=== PATIENT | male | born 1970 | race Caucasian/White ===

== ENCOUNTER 2016-08-11 14:33 | Emergency (ER) | payer OTHER ==
[2016-08-11] MEDS ORDERED: chlordiazePOXIDE CAP* 25 MG PO ONE ×2 (17:22→21:13)
[2016-08-11 17:46] LABS: Hematocrit 46 % (42-52); Hemoglobin 15.7 g/dl (14.0-18.0); Mean Corpuscular HGB Conc 34 g/dl (31-36); Mean Corpuscular Hemoglobin 33 pg (27-31); Mean Corpuscular Volume 96 fL (80-94); Mean Platelet Volume 8 um3 (7.4-10.4); Red Blood Count 4.79 10^6/ul (4.0-5.4); Red Cell Distribution Width 13 % (10.5-15); White Blood Count 5.3 10^3/ul (3.5-10.8)
[2016-08-11 18:05] LABS: ALT 80 U/L (7-52); AST 98 U/L (13-39); Albumin 4.1 g/dL (3.2-5.2); Alkaline Phosphatase 50 U/L (34-104); Anion Gap 10 mmol/L (2-11); BUN/Creatinine Ratio 12.2 (8-20); Blood Urea Nitrogen 10 mg/dL (6-24); CO2 Carbon Dioxide 23 mmol/L (22-32); Calcium 8.9 mg/dL (8.6-10.3); Chloride 103 mmol/L (101-111); EGFR African American 130.1 (>60); EGFR Non-African American 101.1 (>60); Globulin 2.7 g/dL (2-4); Glucose 100 mg/dL (70-100); Potassium 3.3 mmol/L (3.5-5.0); Sodium 136 mmol/L (133-145); Total Protein 6.8 g/dL (6.4-8.9)
[2016-08-11 18:19] LABS: Acetaminophen < 15 mcg/mL; Alcohol < 10 mg/dL (<10); Salicylate < 2.50 mg/dL (<30)
[2016-08-11 18:32] LABS: TSH (Thyroid Stimulating Horm) 1.61 mcIU/mL (0.34-5.60)
[2016-08-11 19:00] LABS: Urine Bilirubin Negative (Negative); Urine Glucose Negative (Negative); Urine Nitrite Negative (Negative)
[2016-08-11 19:13] LABS: Benzodiazepine Urine Screen None Detected (None Detect)
--- NOTE | 2016-08-11 23:11 | ED ---
Gera Mckay Alok, scribed for Landon Echevarria MD on 08/11/16 at 1809 . Substance Abuse/Use - HPI Summary HPI Summary: 46M presents to the ED with ETOH withdrawal symptoms. Pt notes diaphoresis and weakness since riding his bike this morning. Pt also notes tachycardia last night as well as difficulty sleeping for the past 3 days. Pt states he has not had ETOH for the last 2 days. Pt describes his ETOH as daily and states that he drank heavier than average last week, some days more than 20 drinks. Pt states that last week he drank liquor though he normally drinks cider. Pt has adverse reaction to glutton. - History Of Current Complaint Chief Complaint: EDGeneral Stated Complaint: WITHDRAWL SYMPTOMS Time Seen by Provider: 08/11/16 16:57 Hx Obtained From: Patient Onset/Duration of Drug/ETOH Abuse: Years Timing Of Abuse: Daily Severity Initially: Moderate Severity Currently: Moderate Alleviating Factor(s): Nothing Associated Signs And Symptoms: Sleep Disturbance, Diaphoretic Related Hx: Drug/Alcohol Last Used @ - 2 days ago - Allergies/Home Medications Allergies/Adverse Reactions: Allergies Allergy/AdvReac Type Severity Reaction Status Date / Time No Known Allergies Allergy Verified 08/11/16 17:23 PMH/Surg Hx/FS Hx/Imm Hx Infectious Disease History: No Infectious Disease History: Denies: Traveled Outside the [place] in Last 30 Days - Family History Known Family History: Negative: Hypertension - Social History Occupation: Employed Full-time Alcohol Use: Daily Alcohol Amount: 12pk per day Substance Use Type: Reports: Marijuana Smoking Status (MU): Never Smoked Tobacco Review of Systems Positive: Skin Diaphoresis. Negative: Fever, Chills Negative: Erythema Negative: Sore Throat Negative: Chest Pain Negative: Shortness Of Breath, Cough Negative: Abdominal Pain Negative: dysuria, hematuria Negative: Myalgia, Edema Negative: Rash Neurological: Other - Negative: Dizziness Positive: Weakness All Other Systems Reviewed And Are Negative: Yes Physical Exam - Summary Physical Exam Summary: Constitutional: Well-developed, Well-nourished, Alert. (-) Distressed Skin: Warm, Dry HENT: Normocephalic; Atraumatic Eyes: Conjunctiva normal Neck: Musculoskeletal ROM normal neck. (-) JVD, (-) Stridor, (-) Tracheal deviation Cardio: Rhythm regular, rate normal, Heart sounds normal; Intact distal pulses; The pedal pulses are 2+ and symmetric. Radial pulses are 2+ and symmetric. (-) Murmur Pulmonary/Chest wall: Effort normal. (-) Respiratory distress, (-) Wheezes, (-) Rales Abd: Soft, (-) Tenderness, (-) Distension, (-) Guarding, (-) Rebound Musculoskeletal: (-) Edema Lymph: (-) Cervical adenopathy Neuro: Alert, Oriented x3 Psych: Mood and affect Normal Triage Information Reviewed: Yes Vital Signs On Initial Exam: Initial Vitals Temp Pulse Resp BP Pulse Ox 98.4 F 84 20 175/112 99 08/11/16 15:01 08/11/16 15:01 08/11/16 15:01 08/11/16 15:01 08/11/16 15:01 Vital Signs Reviewed: Yes - [place] Coma Scale Coma Scale Total: 15 Diagnostics - Vital Signs Vital Signs Temp Pulse Resp BP Pulse Ox 08/11/16 17:40 20 08/11/16 15:04 98.3 F 84 20 175/112 99 08/11/16 15:01 98.4 F 84 20 175/112 99 - Laboratory Lab Results: Lab Results 08/11/16 Range/Units 17:35 WBC 5.3 (3.5-10.8) 10^3/ul RBC 4.79 (4.0-5.4) 10^6/ul Hgb 15.7 (14.0-18.0) g/dl Hct 46 (42-52) % MCV 96 H (80-94) fL MCH 33 H (27-31) pg MCHC 34 (31-36) g/dl RDW 13 (10.5-15) % Plt Count 134 L (150-450) 10^3/ul MPV 8 (7.4-10.4) um3 Neut % (Auto) 63.6 (38-83) % Lymph % (Auto) 18.1 L (25-47) % [place] % (Auto) 17.1 H (1-9) % Eos % (Auto) 0.7 (0-6) % Baso % (Auto) 0.5 (0-2) % Absolute Neuts (auto) 3.4 (1.5-7.7) 10^3/ul Absolute Lymphs (auto) 1.0 (1.0-4.8) 10^3/ul Absolute Monos (auto) 0.9 H (0-0.8) 10^3/ul Absolute Eos (auto) 0 (0-0.6) 10^3/ul Absolute Basos (auto) 0 (0-0.2) 10^3/ul Absolute Nucleated RBC 0 10^3/ul Nucleated RBC % 0.1 Result Diagrams: 08/11/16 17:35 08/11/16 17:35 Lab Statement: Any lab studies that have been ordered have been reviewed, and results considered in the medical decision making process. Re-Evaluation - Re-Evaluation First Eval Re-Evaluation Time: 21:18 Change: Improved Comment: Patient is feeling better, no diaphoresis and tremors gone. BP stabilized. Course/Dx - Diagnoses Provider Diagnoses: Alcohol withdrawal Discharge - Discharge Plan Condition: Stable Disposition: HOME Prescriptions: [email or web address] CAP* [Librium CAP*] 1 - 2 tab PO Q6H PRN #40 cap MDD 8 PRN Reason: Withdrawal - Alcohol Patient Education Materials: Alcohol Withdrawal (ED) Referrals: [facility] [Outside] Additional Instructions: Please return to the emergency department or urgent care for new/worsening symptoms. The documentation as recorded by the Gera pettit Alok accurately reflects the service I personally performed and the decisions made by , Landon Echevarria MD.
[2016-08-12 05:53] VITALS: BP 149/103
== END 2016-08-11 21:30 | disposition home or self-care (01) ==
LOC: ED 14:33
DX: F10.239 Alcohol dependence with withdrawal, unspecified (principal); R53.1 Weakness
CPT/HCPCS: 36415; 80053; 80307; 80320; 80329; 81003; 84443; 85025; 99283; A9270-GY; G0480

== ENCOUNTER 2016-12-09 18:22 | Inpatient (IN) | payer OTHER ==
[2016-12-09] MEDS ORDERED: LORazepam INJ* 2 MG/ML 1 ML VIAL IV PUSH ONE (21:59)
[2016-12-09] MEDS ORDERED: Thiamine IV* 100 MG/ML 2 ML VIAL IV ONE (22:00)
[2016-12-09] MEDS ORDERED: Thiamine IV* 100 MG, Folic Acid IV* 1 MG, Multiple Vitamin IV ADULT* 10 ML, Magnesium S... IV ONE ×5 (22:00)
[2016-12-09] MEDS ORDERED: NS 0.9% 1000 ML* 2,000 ML IV ONE (22:00)
[2016-12-09] MEDS ORDERED: Ondansetron INJ* 2 MG/ML VIAL IV ONE (22:00)
[2016-12-09] MEDS ORDERED: chlordiazePOXIDE CAP* 10 MG PO ONE (22:02)
[2016-12-09 22:28] LABS: Urine Bilirubin Negative (Negative); Urine Glucose Negative (Negative); Urine Nitrite Negative (Negative)
[2016-12-09] MEDS ORDERED: Thiamine IV 100 MG, Folic Acid IV* 1 MG, Multiple Vitamin IV ADULT* 10 ML in D5NS 0.9% ... IV ONE (22:28)
[2016-12-09 22:32] LABS: Comments Flag Yes; Hematocrit 45 % (42-52); Mean Corpuscular HGB Conc 36 g/dl (31-36); Mean Corpuscular Hemoglobin 33 pg (27-31); Mean Corpuscular Volume 93 fL (80-94); Mean Platelet Volume 8 um3 (7.4-10.4); Red Blood Count 4.83 10^6/ul (4.0-5.4); Red Cell Distribution Width 14 % (10.5-15); White Blood Count 5.7 10^3/ul (3.5-10.8)
[2016-12-09 22:41] LABS: ALT 87 U/L (7-52); AST 116 U/L (13-39); Albumin 3.9 g/dL (3.2-5.2); Alkaline Phosphatase 47 U/L (34-104); Anion Gap 7 mmol/L (2-11); Blood Urea Nitrogen 7 mg/dL (6-24); CO2 Carbon Dioxide 31 mmol/L (22-32); Calcium 8.3 mg/dL (8.6-10.3); Chloride 98 mmol/L (101-111); EGFR African American 137.8 (>60); EGFR Non-African American 107.2 (>60); Globulin 2.6 g/dL (2-4); Glucose 124 mg/dL (70-100); Potassium 3.6 mmol/L (3.5-5.0); Sodium 136 mmol/L (133-145); Total Protein 6.5 g/dL (6.4-8.9)
[2016-12-09 22:42] LABS: Benzodiazepine Urine Screen None Detected (None Detect)
[2016-12-09 23:15] LABS: Acetaminophen < 15 mcg/mL; Alcohol 188 mg/dL (<10); Salicylate < 2.50 mg/dL (<30)
--- NOTE | 2016-12-09 23:18 | ED ---
Michelle Mckay Thomas, scribed for Migue Morocho MD on 12/09/16 at 2159 . Complex/Multi-Sys Presentation - HPI Summary HPI Summary: The pt is a 46 y/o F with a Hx of excessive alcohol use presenting to the emergency department with ETOH withdrawal. He is an alcoholic and has used alcohol excessively in the last year and especially the last week. He reports drinking about six drinks a day over the last year. His last drink was today at 18:00. He is attempting to taper down his alcohol use but his blood pressure has been elevated recently. At triage, his blood pressure is 180/91. He is diffusely erythematous on examination, which is not baseline for him. Pt additionally c/o vomiting, tremors, and insomnia (last three days). He has been unable to keep down foods. Pt denies seizures, auditory or visual hallucinations , recent memory changes, SI/HI, and gait disruption. He occasionally uses marijuana. The patient is accompanied by his friend, Eduardo. He is in the process of going through a divorce and is a self-employed poem writer. He is not interested in going through detox. He does not have a PMD. - History Of Current Complaint Chief Complaint: EDDetoxRequest Hx Obtained From: Patient Onset/Duration: Lasting Weeks - patient has been drinking excessively over the last year, Still Present, Worse Since - increase in alcohol use in the last week Timing: Constant Severity Initially: Moderate Location: Negative Aggravating Factor(s): Nothing. Alleviating Factor(s): ETOH. Associated Signs And Symptoms: Positive: Vomiting, Other - Tremors and insomnia (last three days). NEGATIVE: seizures, auditory or visual hallucinations, recent memory changes, SI/HI, and gait disruption. Negative: Fever Related History: Other - Hx of excessive alcohol use in the last year and especially the last week - Allergies/Home Medications Allergies/Adverse Reactions: Allergies Allergy/AdvReac Type Severity Reaction Status Date / Time No Known Allergies Allergy Verified 08/11/16 17:23 PMH/Surg Hx/FS Hx/Imm Hx Previously Healthy: No Sensory History: Denies: Hx Legally Blind EENT History: Denies: Hx Deafness Neurological History: Denies: Hx Seizures Psychiatric History: Reports: Hx Substance Abuse - ETOH - Surgical History Surgery Procedure, Year, and Place: Hernia repair, ACL reconstruction Infectious Disease History: No Infectious Disease History: Denies: Traveled Outside the [place] in Last 30 Days - Family History Known Family History: Negative: Hypertension - Social History Alcohol Use: Daily Alcohol Amount: At triage, patient says 12 pack per day but in the room he says 6 pack. Substance Use Type: Reports: Marijuana Smoking Status (MU): Never Smoked Tobacco Review of Systems Negative: Fever Positive: Other - Hypertensive Positive: Vomiting Neurological: Other - Tremors, insomnia; NEGATIVE: seizures, auditory or visual hallucinations, recent memory changes, gait disruption Negative: Other - NEGATIVE: SI/HI All Other Systems Reviewed And Are Negative: Yes Physical Exam - Summary Physical Exam Summary: Appearance: Well-appearing, Well-nourished Skin: Warm and flushed throughout. Eyes: Normal ENT: Normal. No ophthalmoplegia. EOMI. Neck: Supple, nontender Respiratory: Clear to auscultation Cardiovascular: Normal Abdomen: Soft, nontender. There is no hepatosplenomegaly. Bowel: Present Musculoskeletal: Normal, Strength/ROM Intact Neurological: Alert, Oriented to Person. He slightly tremulous in all four extremities. He has normal coordination. CN II-XII are intact. He is able to speak in full sentences. Psychiatric: He is anxious. Triage Information Reviewed: Yes Vital Signs On Initial Exam: Initial Vitals Temp Pulse Resp BP Pulse Ox 99.0 F 109 20 180/91 96 12/09/16 18:34 12/09/16 18:34 12/09/16 18:34 12/09/16 18:34 12/09/16 18:34 Vital Signs Reviewed: Yes Diagnostics - Vital Signs Vital Signs Temp Pulse Resp BP Pulse Ox 12/09/16 18:34 99.0 F 109 20 180/91 96 - Laboratory Lab Results: Lab Results 12/09/16 12/09/16 12/09/16 Range/Units 22:10 22:10 22:10 WBC 5.7 (3.5-10.8) 10^3/ul RBC 4.83 (4.0-5.4) 10^6/ul Hgb 16.0 (14.0-18.0) g/dl Hct 45 (42-52) % MCV 93 (80-94) fL MCH 33 H (27-31) pg MCHC 36 (31-36) g/dl RDW 14 (10.5-15) % Plt Count 148 L (150-450) 10^3/ul MPV 8 (7.4-10.4) um3 Neut % (Auto) 54.4 (38-83) % Lymph % (Auto) 30.3 (25-47) % [place] % (Auto) 14.8 H (1-9) % Eos % (Auto) 0 (0-6) % Baso % (Auto) 0.5 (0-2) % Absolute Neuts (auto) 3.1 (1.5-7.7) 10^3/ul Absolute Lymphs (auto) 1.7 (1.0-4.8) 10^3/ul Absolute Monos (auto) 0.8 (0-0.8) 10^3/ul Absolute Eos (auto) 0 (0-0.6) 10^3/ul Absolute Basos (auto) 0 (0-0.2) 10^3/ul Absolute Nucleated RBC 0 10^3/ul Nucleated RBC % 0.1 Sodium 136 (133-145) mmol/L Potassium 3.6 (3.5-5.0) mmol/L Chloride 98 L (101-111) mmol/L Carbon Dioxide 31 (22-32) mmol/L Anion Gap 7 (2-11) mmol/L BUN 7 (6-24) mg/dL Creatinine 0.78 (0.67-1.17) mg/dL Est GFR ( Amer) 137.8 (>60) Est GFR (Non-Af Amer) 107.2 (>60) BUN/Creatinine Ratio 9.0 (8-20) Glucose 124 H (70-100) mg/dL Calcium 8.3 L (8.6-10.3) mg/dL Total Bilirubin 1.10 H (0.2-1.0) mg/dL AST 116 H (13-39) U/L ALT 87 H (7-52) U/L Alkaline Phosphatase 47 (34-104) U/L Total Protein 6.5 (6.4-8.9) g/dL Albumin 3.9 (3.2-5.2) g/dL Globulin 2.6 (2-4) g/dL Albumin/Globulin Ratio 1.5 (1-3) TSH Pending Urine Color Urine Appearance Urine pH (5-9) Ur Specific [place] (1.010-1.030) Urine Protein (Negative) Urine Ketones (Negative) Urine Blood (Negative) Urine Nitrate (Negative) Urine Bilirubin (Negative) Urine Urobilinogen (Negative) Ur Leukocyte Esterase (Negative) Urine Glucose (Negative) Salicylates < 2.50 (<30) mg/dL Urine Opiates Screen None detected (None Detect) Acetaminophen < 15 mcg/mL Ur Barbiturates Screen None detected (None Detect) Ur Phencyclidine Scrn None detected (None Detect) Ur Amphetamines Screen None detected (None Detect) U Benzodiazepines Scrn None detected (None Detect) Urine Cocaine Screen None detected (None Detect) U Cannabinoids Screen None detected (None Detect) Serum Alcohol 188 H (<10) mg/dL 12/09/16 Range/Units 22:10 WBC (3.5-10.8) 10^3/ul RBC (4.0-5.4) 10^6/ul Hgb (14.0-18.0) g/dl Hct (42-52) % MCV (80-94) fL MCH (27-31) pg MCHC (31-36) g/dl RDW (10.5-15) % Plt Count (150-450) 10^3/ul MPV (7.4-10.4) um3 Neut % (Auto) (38-83) % Lymph % (Auto) (25-47) % [place] % (Auto) (1-9) % Eos % (Auto) (0-6) % Baso % (Auto) (0-2) % Absolute Neuts (auto) (1.5-7.7) 10^3/ul Absolute Lymphs (auto) (1.0-4.8) 10^3/ul Absolute Monos (auto) (0-0.8) 10^3/ul Absolute Eos (auto) (0-0.6) 10^3/ul Absolute Basos (auto) (0-0.2) 10^3/ul Absolute Nucleated RBC 10^3/ul Nucleated RBC % Sodium (133-145) mmol/L Potassium (3.5-5.0) mmol/L Chloride (101-111) mmol/L Carbon Dioxide (22-32) mmol/L Anion Gap (2-11) mmol/L BUN (6-24) mg/dL Creatinine (0.67-1.17) mg/dL Est GFR ( Amer) (>60) Est GFR (Non-Af Amer) (>60) BUN/Creatinine Ratio (8-20) Glucose (70-100) mg/dL Calcium (8.6-10.3) mg/dL Total Bilirubin (0.2-1.0) mg/dL AST (13-39) U/L ALT (7-52) U/L Alkaline Phosphatase (34-104) U/L Total Protein (6.4-8.9) g/dL Albumin (3.2-5.2) g/dL Globulin (2-4) g/dL Albumin/Globulin Ratio (1-3) TSH Urine Color Straw Urine Appearance Clear Urine pH 8.0 (5-9) Ur Specific [place] 1.001 L (1.010-1.030) Urine Protein Negative (Negative) Urine Ketones Negative (Negative) Urine Blood Negative (Negative) Urine Nitrate Negative (Negative) Urine Bilirubin Negative (Negative) Urine Urobilinogen Negative (Negative) Ur Leukocyte Esterase Negative (Negative) Urine Glucose Negative (Negative) Salicylates (<30) mg/dL Urine Opiates Screen (None Detect) Acetaminophen mcg/mL Ur Barbiturates Screen (None Detect) Ur Phencyclidine Scrn (None Detect) Ur Amphetamines Screen (None Detect) U Benzodiazepines Scrn (None Detect) Urine Cocaine Screen (None Detect) U Cannabinoids Screen (None Detect) Serum Alcohol (<10) mg/dL Result Diagrams: 12/09/16 22:10 12/09/16 22:10 Lab Statement: Any lab studies that have been ordered have been reviewed, and results considered in the medical decision making process. Complex Multi-Symp Course/Dx Course Of Treatment: Eduardo Wong, the patient's friend, left the ED at 23:10. He left his phone number. - Diagnoses Provider Diagnoses: Alcohol withdrawal - Physician Notifications Discussed Care Of Patient With: Judy Jaimes Time Discussed With Above Provider: 23:16 Instructed by Provider To: Admit As Observation - I consulted with Dr. Jaimes, hospitalist, regarding patient care. Discharge - Discharge Plan Condition: Stable Disposition: ADMITTED TO [facility] documentation as recorded by the Michelle pettit Thomas accurately reflects the service I personally performed and the decisions made by , Migue Morocho MD.
[2016-12-09 23:31] LABS: TSH (Thyroid Stimulating Horm) 2.39 mcIU/mL (0.34-5.60)
[2016-12-10] MEDS ORDERED: Acetaminophen TAB* 325 MG PO PRN (00:43)
[2016-12-10] MEDS ORDERED: Ibuprofen TAB* 400 MG PO PRN (00:46)
[2016-12-10] MEDS: Ondansetron INJ* 2 MG/ML VIAL IV PRN ×3 (01:55→17:02)
[2016-12-10] MEDS: Calcium Carbonate CHEW TAB* 500 MG (TUMS) PO PRN ×2 (01:55→11:02)
--- NOTE | 2016-12-10 03:12 | HP ---
HISTORY AND PHYSICAL: DATE OF ADMISSION: 12/10/16 PRIMARY CARE PROVIDER: None. CHIEF COMPLAINT: Alcohol withdrawal. HISTORY OF PRESENT ILLNESS: Mr. Zuluaga is a 46-year-old male who has no significant past medical history outside of alcoholism over the last couple of years, who presented to the emergency room stating that he has been feeling incredibly poor, been unable to sleep, has been shaky and would like to get help in withdrawing from alcohol. The patient states that over the last 1 week or so, he was on a very heavy binge drinking approximately 15 alcoholic beverages per day. He states that he was drinking hard cider and liquor. He states he has been trying to taper himself down; however, when he does so, he feels incredibly poor. The patient states in general, over the last couple of years, however; he has been drinking at a minimum 4 to 5 drinks per day. The patient states that his alcohol consumption does vary quite a bit as he is a competitive biker. He states that approximately 3 months ago, he went through withdrawal at home for 3 days; however, he ended up in the hospital for continued support. This, however, was just an ER visit. The patient does admit to nausea and vomiting. He has mild discomfort that he thinks is related to vomiting frequently. His biggest complaint at this point is that he has not slept in days. The patient does state that he has never had an alcohol withdrawal seizure or hallucinations. PAST MEDICAL HISTORY: Alcoholism. PAST SURGICAL HISTORY: 1. Right ACL repair. 2. Hernia repair as a child. MEDICATIONS: None. ALLERGIES: No known drug allergies. FAMILY HISTORY: Mom is living, she is 70. She has a history of melanoma. Dad is living. He is healthy. SOCIAL HISTORY: The patient is a nonsmoker. He drinks alcohol as above. He uses marijuana on occasion. 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 He is going through a divorce. He has no children. He indicates his friend, Eduardo Wong, phone number [phone] would be his surrogate decision maker. REVIEW OF SYSTEMS: A complete 11 systems review of systems was obtained. Pertinent positives and negatives are as per HPI and in addition, the patient does complain of very poor appetite over the last several days. PHYSICAL EXAMINATION GENERAL: The patient is a well-developed middle-aged male, sitting in the stretcher, in no acute distress. He is diffusely erythematous especially noted in head, neck, and upper chest. VITAL SIGNS: Blood pressure 139/89, pulse 80, respirations 16, temp 99.5, O2 sat is 94% on 2 L. HEENT: Pupils are equal. Extraocular muscles are intact. Sclerae are bloodshot appearing. Oropharynx is clear. Oral mucosa is moist. There is no submandibular, cervical or supraclavicular adenopathy. Thyroid is not enlarged. No thyroid nodules are noted. PULMONARY: Lungs are clear to auscultation bilaterally. CARDIAC: Normal S1, S2. Regular rate and rhythm. I do not appreciate any murmurs. There is no lower extremity edema. ABDOMEN: Bowel sounds are present. Abdomen is soft, nontender, nondistended. MUSCULOSKELETAL: There is no cyanosis or clubbing of the digits. There is full active range of motion of all 4 extremities. NEUROLOGIC: The patient is sleepy. He is able to follow commands. I had to step out of the patient's room for a period of time and when I returned and awakened the patient from sleep, he was very confused. He did not know where he was, though once I reoriented him, he was able to recall our prior conversation. PSYCH: The patient again is sleepy. Affect appears appropriate. SKIN: Warm and dry. There is a slight erythematous macular rash to the patient 's chest, though overall he appears erythematous in the face, the neck, and the upper chest, so it is unclear if this is just continuation of that process. LABORATORY DATA: WBC 5.7, hemoglobin 16.0, hematocrit 45, platelets 148,000. Sodium 136, potassium 3.6, chloride 98, CO2 31, BUN 7, creatinine 0.78, glucose 124, calcium 8.3. Bilirubin 1.1, AST 116, ALT 87, alk phos 47. Albumin 3.9. TSH 2.39. Urinalysis reveals a specific gravity of 1.001 and no signs of infection. Salicylate less than 2.5. Acetaminophen less than 15. Alcohol level 188. ASSESSMENT AND PLAN: Mr. Zuluaga is a 46-year-old male with a history of alcoholism who presents to the emergency room for help with alcohol withdrawal. 1. Alcohol withdrawal. The patient will be admitted and placed on the [facility] protocol. For now, I will utilize only IV Ativan , however, if the patient scores heavily, a standing but tapering dose of Valium could be considered. The patient has already received a banana bag in the emergency room. He has also received IV thiamine. He will continue on oral thiamine and a multivitamin daily. I have ordered Tums and omeprazole for the patient due to his complaints of indigestion and recent vomiting. Social work consult will be ordered. 2. Possible alcoholic hepatitis. The patient's AST, ALT, and bilirubin are all mildly elevated. This is possibly alcoholic hepatitis. I will not repeat labs on 12/10/16; however, if the patient is still here on 12/11/16, that can be repeated at this time. 3. DVT prophylaxis. According to the Adult Thrombosis Prophylaxis Risk Factor Assessment Guide, the patient had a total risk factor score of 1 making him low risk. Ambulation will be utilized as DVT prophylaxis. 4. Code status is full. TIME SPENT: 50 minutes were spent admitting this patient. [id number]/[facility] #: [id number] MTDD
[2016-12-10] MEDS ORDERED: LORazepam INJ* 2 MG/ML 1 ML VIAL IV PUSH ONE (03:50)
[2016-12-10] MEDS: LORazepam INJ* 2 MG/ML 1 ML VIAL ONE ×2 (03:56→05:13)
[2016-12-10] MEDS: Omeprazole CAP* 20 MG PO SCH (06:21)
[2016-12-10] MEDS: LORazepam INJ* 2 MG/ML 1 ML VIAL IV PUSH PRN ×6 (06:21→23:22)
[2016-12-10] MEDS: NS 0.9% 1000 ML* 1,000 ML IV SCH ×3 (08:59→20:55)
[2016-12-10] MEDS: Vitamin THERAPEUTIC TAB PO SCH (09:09)
[2016-12-10] MEDS: Thiamine TAB* 100 MG TAB PO SCH (09:09)
--- NOTE | 2016-12-10 17:09 | PN ---
Hospitalist Progress Note Pt seen and examined. EtOH withdrawal, nausea, poor po intake in setting of 3 years of stressors at home. Ativan 6mg 4am, 1mg 6am, 1mg 11am, 1mg 2pm. Symptoms somewhat improving. Wanting to try AA and outpatient counseling at this time. Potential d/c 12/11-, potentially on librium if continued withdrawal symptoms. Never DTs or seizures. Arnel Calvert MD
[2016-12-11] MEDS: LORazepam INJ* 2 MG/ML 1 ML VIAL IV PUSH PRN ×6 (01:10→23:48)
[2016-12-11] MEDS: NS 0.9% 1000 ML* 1,000 ML IV SCH ×3 (04:59→23:51)
[2016-12-11] MEDS: Omeprazole CAP* 20 MG PO SCH (05:36)
[2016-12-11] MEDS: Vitamin THERAPEUTIC TAB PO SCH (09:24)
[2016-12-11] MEDS: Thiamine TAB* 100 MG TAB PO SCH (09:24)
[2016-12-11] MEDS: Calcium Carbonate CHEW TAB* 500 MG (TUMS) PO PRN (14:30)
--- NOTE | 2016-12-11 17:49 | PN ---
Subjective Date of Service: 12/11/16 Interval History: had periods of N/V tremulousness, "felt terrible" got ativan 1 9pm, 1 1030pm, 2 5am. Tolerated lunch today. Prefers AA + counseling but friends trying to be more open minded about an inpatient treatment facility. Objective Active Medications: Acetaminophen (Tylenol Tab*) 650 mg PO Q6H PRN PRN Reason: PAIN Calcium Carbonate (Tums*) 500 mg PO Q4H PRN PRN Reason: INDIGESTION Last Admin: 12/11/16 14:30 Dose: 500 mg Sodium Chloride (Ns 0.9% 1000 Ml*) 1,000 mls @ 125 mls/hr IV PER RATE [facility] Last Admin: 12/11/16 15:00 Dose: 125 mls/hr Ibuprofen (Motrin Tab*) 400 mg PO Q6H PRN PRN Reason: PAIN Last Admin: 12/10/16 17:02 Dose: 400 mg Lorazepam (Ativan Inj*) 0 mg IV PUSH Q2H PRN; Protocol PRN Reason: alcohol withdrawal Last Admin: 12/11/16 05:36 Dose: 2 mg Multivitamins (Theragran Tab*) 1 tab PO DAILY [facility] Last Admin: 12/11/16 09:24 Dose: 1 tab Omeprazole (Prilosec Cap*) 20 mg PO DAILY@0600 [facility] Last Admin: 12/11/16 05:36 Dose: 20 mg Ondansetron HCl (Zofran Inj*) 4 mg IV Q6H PRN PRN Reason: NAUSEA Last Admin: 12/10/16 17:02 Dose: 4 mg Thiamine HCl (Vitamin B-1 Tab*) 100 mg PO DAILY [facility] Last Admin: 12/11/16 09:24 Dose: 100 mg Vital Signs 12/10/16 12/10/16 12/10/16 19:00 19:17 19:32 Temperature 98.3 F Pulse Rate 67 Respiratory 16 16 16 Rate Blood Pressure 149/77 (mmHg) O2 Sat by Pulse 98 Oximetry 12/10/16 12/10/16 12/10/16 20:24 20:58 21:00 Temperature 97.7 F Pulse Rate 81 Respiratory 14 16 14 Rate Blood Pressure 155/99 (mmHg) O2 Sat by Pulse 100 Oximetry 12/10/16 12/10/16 12/10/16 21:15 22:15 23:00 Temperature Pulse Rate Respiratory 14 14 14 Rate Blood Pressure (mmHg) O2 Sat by Pulse Oximetry 12/10/16 12/10/16 12/11/16 23:17 23:22 00:17 Temperature Pulse Rate 63 Respiratory 14 14 14 Rate Blood Pressure 150/86 (mmHg) O2 Sat by Pulse 99 Oximetry 12/11/16 12/11/16 12/11/16 01:00 01:10 01:15 Temperature 97.5 F Pulse Rate 66 Respiratory 18 14 18 Rate Blood Pressure 169/101 (mmHg) O2 Sat by Pulse 100 Oximetry 12/11/16 12/11/16 12/11/16 02:10 03:00 03:21 Temperature 98.2 F Pulse Rate 67 Respiratory 14 14 14 Rate Blood Pressure 144/78 (mmHg) O2 Sat by Pulse 97 Oximetry 12/11/16 12/11/16 12/11/16 03:30 04:30 05:00 Temperature Pulse Rate Respiratory 14 14 14 Rate Blood Pressure (mmHg) O2 Sat by Pulse Oximetry 12/11/16 12/11/16 12/11/16 05:17 05:25 05:36 Temperature 97.8 F Pulse Rate 74 Respiratory 16 14 14 Rate Blood Pressure 150/83 (mmHg) O2 Sat by Pulse 99 Oximetry 12/11/16 12/11/16 12/11/16 06:36 07:36 08:00 Temperature 97.6 F Pulse Rate 84 Respiratory 16 20 14 Rate Blood Pressure 147/103 (mmHg) O2 Sat by Pulse 98 Oximetry 12/11/16 12/11/16 12/11/16 09:06 11:30 13:32 Temperature 98.0 F 98.1 F 98.3 F Pulse Rate 63 72 71 Respiratory 16 16 16 Rate Blood Pressure 148/77 151/97 157/87 (mmHg) O2 Sat by Pulse 98 99 97 Oximetry 12/11/16 12/11/16 15:10 17:29 Temperature 98.2 F 98.3 F Pulse Rate 75 67 Respiratory 18 18 Rate Blood Pressure 154/95 156/96 (mmHg) O2 Sat by Pulse 98 99 Oximetry Appearance: NAD, eyes slightly bloodshot, tired appearing with slow speech. Eyes: No Scleral Icterus, PERRLA Ears/Nose/Mouth/Throat: NL Teeth, Lips, Gums, Mucous Membranes Moist Neck: NL Appearance and Movements; NL JVP Respiratory: Symmetrical Chest Expansion and Respiratory Effort, Clear to Auscultation Cardiovascular: NL Sounds; No Murmurs; No JVD, RRR Abdominal: NL Sounds; No Tenderness; No Distention, No Hepatosplenomegaly Extremities: No Edema, No Clubbing, Cyanosis Skin: No Rash or Ulcers, No Nodules or Sclerosis Neurological: NL Sensation, NL Muscle Strength and Tone, - - Oriented x3. Nutrition: Taking PO's Result Diagrams: 12/09/16 22:10 12/09/16 22:10 Additional Lab and Data: Assess/Plan/Problems-Billing Assessment: 46 yo male PMH heavy EtOH use p/w nausea, tremors, poor po intake. Wanting help with alcohol withdrawal. Still in withdrawal but decreasing ativan reqquirments. - Patient Problems (1) Alcohol withdrawal Current Visit: Yes Status: Acute Code(s): F10.239 - ALCOHOL DEPENDENCE WITH WITHDRAWAL, UNSPECIFIED SNOMED Code(s): 027113931 Comment: continue WAM protocol and prn ativan q2h consider librium, tapering, upon discharge folate, thiamine, Multivitamin last drink ~12/09 mid-morning. (2) ETOH abuse Current Visit: Yes Status: Acute Code(s): F10.10 - ALCOHOL ABUSE, UNCOMPLICATED SNOMED Code(s): 30343713 Comment: AA and private counseling planned. appreciate SW assistance friends still urging him to get more info about inpatient treatment facilities and he is more open to atleast getting info. Status and Disposition: medicine inpatient. likely d/c 12/12 Attending: Arnel Calvert
[2016-12-12] MEDS: LORazepam INJ* 2 MG/ML 1 ML VIAL IV PUSH PRN ×2 (03:41→06:28)
[2016-12-12] MEDS: Omeprazole CAP* 20 MG PO SCH (06:13)
[2016-12-12] MEDS: Thiamine TAB* 100 MG TAB PO SCH (07:33)
[2016-12-12] MEDS: Calcium Carbonate CHEW TAB* 500 MG (TUMS) PO PRN ×2 (07:33→14:06)
[2016-12-12] MEDS: Vitamin THERAPEUTIC TAB PO SCH (07:33)
[2016-12-12] MEDS ORDERED: LORazepam INJ* 2 MG/ML 1 ML VIAL IV PUSH PRN (08:16)
[2016-12-12] MEDS ORDERED: chlordiazePOXIDE CAP* 25 MG PO SCH (11:00)
[2016-12-12 11:33] VITALS: BP 149/97
--- NOTE | 2016-12-12 21:45 | DS ---
DISCHARGE SUMMARY: DATE OF ADMISSION: 12/10/16 DATE OF DISCHARGE: 12/12/16 ADMITTING PHYSICIAN: Judy Jaimes DO ATTENDING PHYSICIAN: Arnel Calvert MD PRIMARY CARE PHYSICIAN: None. He has plans to get one in [place], CHIEF COMPLAINT: Alcohol withdrawal. PRINCIPAL DIAGNOSIS: Alcohol withdrawal. HISTORY OF PRESENT ILLNESS AND HOSPITAL COURSE: Mr. Zuluaga is a 46-year-old male, no significant past medical history other than alcoholism over the last few years. Please see H and P of 12/10/16 for full details, but patient has been feeling very poorly, unable to sleep, shaky, tremulous and presents with desire along with friend Eduardo for him to get help withdrawing from alcohol, over the last week he was heavily binge drinking 15 alcoholic beverages per day with hard cider and liquor. He had been trying to recently taper himself down, but had withdrawal symptoms. In general, over the last year he had been drinking minimum of 4 to 5 drinks per day. He has been going through a divorce and his dog . He went through withdrawal at home for 3 days 3 months ago, but ended up in the emergency room for continued support. He has been nauseous and vomiting, taking in very little p.o. intake for the last 5 to 7 days. Some discomfort in his throat secondary to the vomiting. He denied being able to sleep for a few days. He denied any history of alcohol withdrawal seizures or hallucinations. He was admitted for alcohol withdrawal, placed on WAM protocol, he got a dose of Librium in the emergency room, banana bag, IV thiamine and multivitamin. He scored in the low teens, required approximately 5 to 6 Ativan for the rest of hospital day #1 and day #2, hospital day #3 he got Librium 25 mg in the morning, he met with social work along with his friends Eduardo and Yessenia who are very supportive throughout the stay. He ultimately decided to pursue local chapter in [place] along with one of listed private counselors provided by clinical social worker Azra, was not ultimately interested in pursuing inpatient rehabilitation at this point in time. His withdrawal symptoms have greatly improved. He will be discharged on tapering dose of Librium 25 mg twice a day for 2 days and then once a day for 2 days. He plans to establish care in [place] with a new primary care physician. MEDICATIONS ON DISCHARGE: Include: 1. Librium 25 mg twice a day for 2 days, then once a day for 2 days. 2. Thiamine 100 mg p.o. daily. 3. Folic acid 1 mg tab p.o. daily. 4. Multivitamin 1 tab p.o. daily. DIET: Unrestricted, unchanged. ACTIVITY: Unrestricted. The patient is an avid long distance cyclist and that was encouraged to pickler helper after Librium has been tapering off and after he is feeling better. FOLLOWUP: Follow up with a new PCP in [place] next week, was encouraged along with AA and private counseling. TIME SPENT: On discharge 35 minutes. [id number]/[facility] #: [id number] ATUL
== END 2016-12-12 15:00 | disposition home or self-care (01) | DRG 897 ==
LOC: ED 18:22 → MED 12-10 00:43
PROVIDERS: ADMIT Hospitalist; ATTEND Internal Medicine
DX: F10.239 Alcohol dependence with withdrawal, unspecified (principal); F12.90 Cannabis use, unspecified, uncomplicated; Y90.6 Blood alcohol level of 120-199 mg/100 ml; Z80.8 Family history of malignant neoplasm of other organs or systems
CPT/HCPCS: 36415; 80053; 80307; 80320; 80329; 81003; 84443; 85025; A9270-GY; G0480; J2060; J2405; J3411; J3475; J7060